=== PATIENT | female | born 1935 | race Caucasian/White ===

== ENCOUNTER 2018-01-03 20:05 | Emergency (ER) | payer OTHER ==
[~2018-01-03] VITALS: Ht 160 cm; Wt 49.9 kg
[2018-01-03] MEDS ORDERED: AMLODIPINE-BEN1 EACH PO (20:14)
[2018-01-03] MEDS ORDERED: PROTONIX40 M1 PO ×2 (20:14→21:37)
[2018-01-03 20:32] LABS: HEMATOCRIT 42.3 % (37.0-47.0); HEMOGLOBIN 14.1 gm/dL (12.0-15.0); MCH 27.5 pg (26.0-34.0); MCHC 33.4 g/dL (28.0-37.0); MCV 82.5 fL (80.0-100.0); MPV 7.2 fl. (7.2-11.1); NUCLEATED RBCS 0 /100WBC; PLATELET COUNT* 409 thou/uL (150-400); RBC 5.12 mil/uL (4.20-5.00); RDW-CV 13.9 % (10.5-14.5); WBC 10.6 thou/uL (4.0-11.0)
[2018-01-03 20:45] LABS: PROTIME 9.5 Seconds (9.20-11.50)
[2018-01-03 20:55] LABS: ANION GAP 12 mmol/L (7-16); BUN 12 mg/dL (7-18); CALCIUM 9.3 mg/dL (8.5-10.1); CHLORIDE 103 mmol/L (98-107); CO2 28 mmol/L (21-32); GLUCOSE 152 mg/dL (70-99); POTASSIUM 3.7 mmol/L (3.5-5.1); SODIUM 143 mmol/L (136-145)
[2018-01-03 20:58] LABS: ALBUMIN 3.7 g/dL (3.4-5.0); LIPASE 247 U/L (73-393); SGOT 14 U/L (15-37); SGPT 16 U/L (30-65)
[2018-01-03 20:59] LABS: ABSOLUTE EOSINOPHILS 0.1 thou/uL (0.0-0.7); ABSOLUTE LYMPHOCYTES 0.2 thou/uL (0.8-5.3); ABSOLUTE MONOCYTES 0.5 thou/uL (0.0-1.2); ABSOLUTE NEUTROPHILS 9.8 thou/uL (1.6-8.1)
[2018-01-03 21:00] LABS: PLATELET ESTIMATE ADEQUATE
[2018-01-03 21:15] LABS: ALKALINE PHOSPHATASE 89 U/L (46-116); NT-PRO BRAIN NAT PEPTIDE 239 pg/mL (<300); TOTAL BILIRUBIN 0.5 mg/dL (<0.1-1.0); TOTAL PROTEIN 7.7 g/dL (6.4-8.2); TROPONIN-I LEVEL <0.06 ng/mL (<0.06)
[2018-01-03 21:47] VITALS: BP 146/64
[2018-01-03 21:48] LABS: URINE BILIRUBIN 1+ (Negative); URINE BLOOD 1+ (Negative); URINE CLARITY SL CLOUDY; URINE COLOR YELLOW; URINE GLUCOSE-RANDOM NEGATIVE (Negative); URINE KETONES TRACE (Negative); URINE LEUKOCYTES-REFLEX 2+ (Negative); URINE NITRITE-REFLEX POSITIVE (Negative); URINE PROTEIN 2+ (Negative); URINE SPECIFIC GRAVITY >= 1.030 (1.005-1.030); URINE UROBILINOGEN 0.2 E.U./dl (0.2-1.0)
[2018-01-03 21:55] LABS: AMORPHOUS URATES Moderate /LPF (None Seen); BACTERIA-REFLEX >30 Many /HPF (None Seen); CELLULAR CASTS 4-10 Moderate /LPF (None Seen); COARSE GRANULAR CASTS 0-3 Few /LPF (None Seen); FINE GRANULAR CASTS 0-3 Few /LPF (None Seen); HYALINE CASTS 0-3 Few /LPF (None Seen); MUCUS 4-6 Moderate strn/LPF (None Seen); RENAL EPITHELIAL CELLS 0-3 Few /LPF (None Seen); SQUAMOUS 0-3 Few /LPF (0-3); TRANSITIONAL EPITHEL CELL 0-3 Few /LPF (None Seen); URINE WBC-REFLEX >25 Many /HPF (0-5); WBC CLUMPS Moderate (None Seen)
--- NOTE | 2018-01-04 09:40 | EKG ---
[place] [address] ELECTROCARDIOGRAM REPORT Name: ANA MC Room: [facility]#: [id number] Admission: 01/03/18 Attend Phys: Discharge: 01/03/18 Date of : 33 Report #: [id number] THIS REPORT FOR: //name// [facility] ED Test Date: 2018-01-03 Test Time: 20:15:18 Pat Name: ANAKOBY MC Department: Room: Gender: F Disability Liaison Officer: KEN : 1935 Requested By: Echo Sierra Order Number: [id number] MD: Adam Barclay Measurements Intervals [place] Rate: 86 P: ME: QRS: 34 QRSD: 129 T: 58 QT: 419 QTc: 502 Interpretive Statements sinus rhythm with first degree av block Nonspecific intraventricular conduction delay nonspecific st changes Baseline wander in lead(s) I,II,III,aVR,aVL,aVF,V1,V2,V3,V4,V5,V6 No previous ECG available for comparison Electronically Signed On 01-04-2018 9:39:50 CDT by Adam Barclay [email or web address] <ELECTRONICALLY SIGNED> By: Adam Barclay MD, FACC 01/04/18 0939 14 14 Adam Barclay MD, FAC /EPI
== END 2018-01-03 21:50 | disposition home or self-care (01) ==
LOC: M.ERS 20:05
PROVIDERS: Emergency Medicine
DX: T18.128A Food in esophagus causing other injury, initial encounter (principal); I10 Essential (primary) hypertension; X58.XXXA Exposure to other specified factors, initial encounter; Y93.89 Activity, other specified; Y92.89 Other specified places as the place of occurrence of the external cause; Y99.8 Other external cause status